=== PATIENT | female | born 2000 | race Caucasian/White ===

== ENCOUNTER → 2020-11-15 | Outpatient (REF) | payer OTHER | LOC: M PLALAB 10:58 | PROVIDERS: ATTEND Advanced Practice Midwife | DX: Z36.89 Encounter for other specified antenatal screening (principal); Z3A.08 8 weeks gestation of pregnancy ==

== ENCOUNTER → 2021-11-24 | Outpatient (CLI) | payer OTHER ==
[2021-11-24 10:51] LABS: BASO # 0.1 10^3/uL (0.0-0.2); BASO % 0.5 % (0.0-1.0); EOS # 0.1 10^3/uL (0.0-0.5); HEMATOCRIT 35.4 % (36.0-47.0); HEMOGLOBIN 10.5 g/dl (12.0-15.5); LYMPH # 2.6 10^3/uL (1.5-5.0); LYMPH % 24.1 % (24.0-44.0); MEAN CORPUSCULAR HEMOGLOBIN 22.2 pg (27.0-33.0); MEAN CORPUSCULAR HGB CONC 29.7 g/dl (32.0-36.5); MEAN CORPUSCULAR VOLUME 74.8 fl (80.0-96.0); MONO # 0.9 10^3/uL (0.0-0.8); MONO % 8.6 % (2.0-8.0); NEUTROPHILS % 65.5 % (36.0-66.0); PLATELET COUNT, AUTOMATED 476 10^3/uL (150-450); RED BLOOD COUNT 4.73 10^6/uL (4.00-5.40); WHITE BLOOD COUNT 10.7 10^3/uL (4.0-10.0)
[2021-11-24 11:30] LABS: ALBUMIN 3.6 GM/DL (3.2-5.2); ALT/SGPT 28 U/L (12-78); BILIRUBIN,TOTAL 0.5 MG/DL (0.2-1.0); BLOOD UREA NITROGEN 17 MG/DL (7-18); CALCIUM LEVEL 9.4 MG/DL (8.5-10.1); CARBON DIOXIDE LEVEL 30 MEQ/L (21-32); CHLORIDE LEVEL 103 MEQ/L (98-107); CHOLESTEROL LEVEL 227 MG/DL (<200); CHOLESTEROL RISK RATIO 3.661 (<5); CREATININE FOR GFR 0.65 MG/DL (0.55-1.30); FERRITIN 15 NG/ML (8-252); FREE T4 1.08 NG/DL (0.76-1.46); GLOMERULAR FILTRATION RATE > 60.0 (>60); GLUCOSE, FASTING 80 MG/DL (70-100); HDL CHOLESTEROL 62 MG/DL (>40); IRON (FE) 39 UG/DL (50-170); LDL CHOLESTEROL 154 MG/DL (<100); NON-HDL-C 165 MG/DL; PERCENT SATURATION 11.2 % (13.2-45.0); POTASSIUM SERUM 4.3 MEQ/L (3.5-5.1); SODIUM LEVEL 139 MEQ/L (136-145); TOTAL IRON BINDING CAPACITY 347 UG/DL (250-450); TOTAL PROTEIN 7.6 GM/DL (6.4-8.2); TRIGLYCERIDES LEVEL 54 MG/DL (<150)
== END ==
LOC: M LAB 10:20
PROVIDERS: ATTEND Nurse Practitioner Adult Health
DX: R94.6 Abnormal results of thyroid function studies (principal); Z13.220 Encounter for screening for lipoid disorders; Z13.29 Encounter for screening for other suspected endocrine disorder

== ENCOUNTER 2022-04-02 18:28 | Emergency (ER) | payer OTHER ==
[~2022-04-02] VITALS: Ht 165.1 cm; Wt 95.3 kg
[~2022-04-02 18:28] MED LIST: OMEP40CA5
[2022-04-02 21:37] VITALS: BP 142/68
== END 2022-04-02 22:42 | disposition left against medical advice (07) ==
LOC: M ED 18:28
DX: Z53.21 Procedure and treatment not carried out due to patient leaving prior to being seen by health care provider (principal)

== ENCOUNTER → 2022-05-02 | Outpatient (CLI) | payer OTHER ==
[2022-05-02 16:00] LABS: BASO % 0.4 % (0.0-1.0); EOS # 0.1 10^3/uL (0.0-0.5); EOS % 1.1 % (0.0-3.0); HEMATOCRIT 36.4 % (36.0-47.0); HEMOGLOBIN 10.7 g/dl (12.0-15.5); LYMPH # 3.3 10^3/uL (1.5-5.0); LYMPH % 28.7 % (24.0-44.0); MEAN CORPUSCULAR HEMOGLOBIN 21.9 pg (27.0-33.0); MEAN CORPUSCULAR HGB CONC 29.4 g/dl (32.0-36.5); MEAN CORPUSCULAR VOLUME 74.6 fl (80.0-96.0); MONO # 0.7 10^3/uL (0.0-0.8); MONO % 6.3 % (2.0-8.0); NEUTROPHILS # 7.2 10^3/uL (1.5-8.5); NEUTROPHILS % 63.1 % (36.0-66.0); PLATELET COUNT, AUTOMATED 521 10^3/uL (150-450); RED BLOOD COUNT 4.88 10^6/uL (4.00-5.40); WHITE BLOOD COUNT 11.3 10^3/uL (4.0-10.0)
[2022-05-02 17:07] LABS: PERCENT SATURATION 5.6 % (13.2-45.0)
[2022-05-02 18:06] LABS: FOLLICLE STIMULATING HORMONE 6.1 mIU/mL
== END ==
LOC: M LAB 15:23
PROVIDERS: ATTEND Nurse Practitioner Adult Health
DX: N94.6 Dysmenorrhea, unspecified (principal); R19.7 Diarrhea, unspecified; D50.9 Iron deficiency anemia, unspecified

== ENCOUNTER → 2022-05-03 | Outpatient (REF) | payer OTHER | LOC: M LAB REF 09:46 | PROVIDERS: ATTEND Nurse Practitioner Adult Health | DX: N94.6 Dysmenorrhea, unspecified (principal); R19.7 Diarrhea, unspecified; R53.83 Other fatigue; D50.9 Iron deficiency anemia, unspecified ==

== ENCOUNTER → 2022-08-24 | Outpatient (CLI) | payer OTHER | LOC: M LAB 09:27 | PROVIDERS: ATTEND Obstetrics & Gynecology | DX: Z32.01 Encounter for pregnancy test, result positive (principal) ==

== ENCOUNTER → 2022-08-26 | Outpatient (CLI) | payer OTHER | LOC: M LAB 09:59 | PROVIDERS: ATTEND Obstetrics & Gynecology | DX: Z32.01 Encounter for pregnancy test, result positive (principal) ==

== ENCOUNTER → 2022-10-15 | Outpatient (CLI) | payer OTHER ==
[2022-10-15 14:20] LABS: HEMATOCRIT 38.7 % (36.0-47.0); HEMOGLOBIN 11.5 g/dl (12.0-15.5); MEAN CORPUSCULAR HGB CONC 29.7 g/dl (32.0-36.5); MEAN CORPUSCULAR VOLUME 77.2 fl (80.0-96.0); PLATELET COUNT, AUTOMATED 456 10^3/uL (150-450); RED BLOOD COUNT 5.01 10^6/uL (4.00-5.40); WHITE BLOOD COUNT 10.2 10^3/uL (4.0-10.0)
[2022-10-15 14:56] LABS: HIV 1&2 SCREEN CENTAUR NEGATIVE (NEGATIVE)
[2022-10-15 15:04] LABS: HEPATITIS C VIRUS ABY INDEX 0.1 INDEX (<0.8)
[2022-10-15 16:28] LABS: GC DNA AMPLIFICATION NEGATIVE (NEGATIVE)
== END ==
LOC: M PLALAB 09:58
PROVIDERS: ATTEND Specialist
DX: Z34.81 Encounter for supervision of other normal pregnancy, first trimester (principal)
CPT/HCPCS: 36415; 85027; 86762; 86780; 86803; 86850; 86900; 86901; 87086; 87340; 87389; 87810; 87850; G0463

== ENCOUNTER → 2022-12-26 | Outpatient (CLI) | payer OTHER | LOC: M WHC 13:34 | PROVIDERS: ATTEND Advanced Practice Midwife | DX: Z34.82 Encounter for supervision of other normal pregnancy, second trimester (principal) ==

== ENCOUNTER → 2023-02-07 | Outpatient (CLI) | payer OTHER ==
[~2023-02-07] MED LIST changes: +ACET325C5 PO; +PRENTAB9 PO
[2023-02-07 14:30] LABS: HEMATOCRIT 32.9 % (36.0-47.0); HEMOGLOBIN 10.1 g/dl (12.0-15.5); MEAN CORPUSCULAR HEMOGLOBIN 24.3 pg (27.0-33.0); MEAN CORPUSCULAR HGB CONC 30.7 g/dl (32.0-36.5); MEAN CORPUSCULAR VOLUME 79.1 fl (80.0-96.0); PLATELET COUNT, AUTOMATED 438 10^3/uL (150-450); RED BLOOD COUNT 4.16 10^6/uL (4.00-5.40); WHITE BLOOD COUNT 11.6 10^3/uL (4.0-10.0)
[2023-02-07 15:45] LABS: GC DNA AMPLIFICATION NEGATIVE (NEGATIVE)
== END ==
LOC: M PLALAB 09:42
PROVIDERS: ATTEND Advanced Practice Midwife
DX: Z34.92 Encounter for supervision of normal pregnancy, unspecified, second trimester (principal)

== ENCOUNTER 2023-03-21 16:16 | Outpatient (CLI) | payer OTHER ==
[~2023-03-21] VITALS: Ht 165.1 cm; Wt 96.8 kg
[2023-03-21 16:41] VITALS: BP 135/89
[2023-03-21 16:56] VITALS: BP 145/87
[2023-03-21] MEDS ORDERED: HOME MED LIST COMPLETE! XX SCH (17:00)
[2023-03-21 17:11] VITALS: BP 148/90
[2023-03-21 17:26] VITALS: BP 133/82
[2023-03-21 17:43] LABS: HEMOGLOBIN 9.9 g/dl (12.0-15.5); MEAN CORPUSCULAR HEMOGLOBIN 23.1 pg (27.0-33.0); MEAN CORPUSCULAR HGB CONC 30.9 g/dl (32.0-36.5); MEAN CORPUSCULAR VOLUME 74.8 fl (80.0-96.0); PLATELET COUNT, AUTOMATED 336 10^3/uL (150-450); RED BLOOD COUNT 4.28 10^6/uL (4.00-5.40); WHITE BLOOD COUNT 11.8 10^3/uL (4.0-10.0)
[2023-03-21 18:00] LABS: URIC ACID 6.7 MG/DL (3.1-7.8)
[2023-03-21 18:02] LABS: LDH LACTATE DEHYDROGENASE 164 U/L (120-246)
[2023-03-21 18:03] LABS: ALT/SGPT 19 U/L (7.0-40); AST/SGOT 12 U/L (<34); BILIRUBIN,TOTAL 0.3 MG/DL (0.3-1.2); CREATININE FOR GFR 0.68 MG/DL (0.55-1.30); GLOMERULAR FILTRATION RATE > 60.0 (>60)
[2023-03-21 18:06] LABS: TOTAL PROTEIN,RANDOM URINE < 6.0 MG/DL (0.0-14.0)
== END 2023-03-21 18:15 | disposition home or self-care (01) ==
LOC: M LDO 16:16
PROVIDERS: ATTEND Advanced Practice Midwife
DX: O26.893 Other specified pregnancy related conditions, third trimester (principal); R03.0 Elevated blood-pressure reading, without diagnosis of hypertension; Z3A.34 34 weeks gestation of pregnancy
CPT/HCPCS: 36415; 59025; 82247; 82565; 82570; 83615; 84156; 84450; 84460; 84550; 85027; G0463

== ENCOUNTER 2023-04-04 08:00 | Outpatient (CLI) | payer OTHER ==
[~2023-04-04] VITALS: Ht 162.6 cm; Wt 97.2 kg
[2023-04-04 08:30] VITALS: BP 132/82; O2SAT 98
[2023-04-04] MEDS ORDERED: IRON SUCROSE 500 MG in NS 250 ML OVER 4 HRS IV ONE (08:30)
[2023-04-04 11:00] VITALS: BP 131/66; O2SAT 97
[2023-04-04 13:37] VITALS: BP 131/71; O2SAT 100
== END 2023-04-04 13:40 ==
LOC: M INFU 08:00
PROVIDERS: ATTEND Specialist
DX: D64.9 Anemia, unspecified (principal)
CPT/HCPCS: 87081; 96365; 96366; G0463; J1756

== ENCOUNTER → 2023-04-04 | Outpatient (REF) | payer OTHER | LOC: M PLALAB 14:21 | PROVIDERS: ATTEND Specialist | DX: Z34.83 Encounter for supervision of other normal pregnancy, third trimester (principal) ==

== ENCOUNTER → 2023-08-22 | Outpatient (CLI) | payer OTHER ==
[2023-08-22 17:12] LABS: BASO # 0.1 10^3/uL (0.0-0.2); BASO % 0.5 % (0.0-1.0); EOS # 0.1 10^3/uL (0.0-0.5); EOS % 1.3 % (0.0-3.0); HEMATOCRIT 38.5 % (36.0-47.0); HEMOGLOBIN 11.8 g/dl (12.0-15.5); LYMPH # 3.7 10^3/uL (1.5-5.0); LYMPH % 36.6 % (24.0-44.0); MEAN CORPUSCULAR HEMOGLOBIN 25.4 pg (27.0-33.0); MEAN CORPUSCULAR HGB CONC 30.6 g/dl (32.0-36.5); MONO # 0.7 10^3/uL (0.0-0.8); MONO % 7.2 % (2.0-8.0); NEUTROPHILS # 5.5 10^3/uL (1.5-8.5); PLATELET COUNT, AUTOMATED 458 10^3/uL (150-450); RED BLOOD COUNT 4.64 10^6/uL (4.00-5.40); WHITE BLOOD COUNT 10.1 10^3/uL (4.0-10.0)
[2023-08-22 17:22] LABS: HEMOGLOBIN A1c 5.2 % (4.0-6.0)
[2023-08-22 17:47] LABS: IRON (FE) 23 UG/DL (50-170)
[2023-08-22 17:48] LABS: ALBUMIN 3.7 G/DL (3.2-5.2); ALKALINE PHOSPHATASE 80 U/L (46-116); ALT/SGPT 25 U/L (7.0-40); AST/SGOT 17 U/L (<34); BILIRUBIN,TOTAL 0.3 MG/DL (0.3-1.2); BLOOD UREA NITROGEN 17 MG/DL (9-23); CALCIUM LEVEL 9.3 MG/DL (8.5-10.1); CARBON DIOXIDE LEVEL 30 MMOL/L (20-31); CHLORIDE LEVEL 106 MMOL/L (98-107); CREATININE FOR GFR 0.71 MG/DL (0.55-1.30); FERRITIN 26.6 NG/ML (7.3-270.7); GLOMERULAR FILTRATION RATE > 60.0 (>60); GLUCOSE, FASTING 85 MG/DL (60-100); PERCENT SATURATION 7.3 % (13.2-45.0); POTASSIUM SERUM 4.3 MMOL/L (3.5-5.1); SODIUM LEVEL 142 MMOL/L (136-145); THYROID STIMULATING HORMONE 1.195 uIU/ML (0.55-4.78); TOTAL IRON BINDING CAPACITY 314 UG/DL (250-425); TOTAL PROTEIN 7.3 G/DL (5.7-8.2)
[2023-08-22 17:49] LABS: FOLATE 21.8 NG/ML (>5.4)
[2023-08-22 17:50] LABS: VITAMIN B12 LEVEL 559 PG/ML (211-911)
== END ==
LOC: M LAB 16:21
PROVIDERS: ATTEND Registered Nurse
DX: Z00.00 Encounter for general adult medical examination without abnormal findings (principal); D64.9 Anemia, unspecified